=== PATIENT | female | born 1980 ===

== ENCOUNTER 2018-03-04 10:20 | Emergency (ER) | payer OTHER, SELFPAY ==
[2018-03-04 10:28] VITALS: O2SAT 98; BMI 31.7
[2018-03-04] MEDS ORDERED: Sodium Chloride 0.9% 1,000 ML IV STA (11:02)
--- NOTE | 2018-03-04 11:12 | ED PDOC ---
HPI: Abdomen Time Seen by Provider: 03/04/18 10:37 Chief Complaint (Nursing): Abdominal Pain Chief Complaint (Provider): Diarrhea History Per: Patient History/Exam Limitations: no limitations Additional History Per: Patient Additional Complaint(s): Diarrhea and vomit nonbloody. Abd pain mild upper. No new food or drinks. No travel or anyone sick. No back pain, headaches, dizziness, weakness, fever, chest pain, dyspnea. No dysuria Past Medical History Reviewed: Nursing Documentation, Vital Signs Vital Signs: Last Vital Signs Temp 98 F 03/04/18 10:27 Pulse 71 03/04/18 10:27 Resp BP 126/75 03/04/18 10:27 Pulse Ox 98 03/04/18 14:07 - Medical History PMH: No Chronic Diseases - Surgical History Surgical History: No Surg Hx - Family History Family History: States: Unknown Family Hx - Living Arrangements Living Arrangements: With Family - Social History Current smoker - smoking cessation education provided: No Alcohol: None Drugs: Denies - Home Medications Home Medications: Ambulatory Orders Medication Instructions Recorded Nitrofurantoin Macrocrystals 100 mg PO BID #14 cap 07/19/14 [Macrobid] Phenazopyridine HCl [Pyridium] 100 mg PO TID #6 tab 07/19/14 Dicyclomine [Dicyclomine HCl] 10 mg PO DAILY PRN 5 Days cap 03/04/18 Nitrofurantoin Macrocrystals 100 mg PO BID #10 cap 03/04/18 [Macrobid] Ondansetron [Zofran] 4 mg PO Q8H PRN #6 tab 03/04/18 - Allergies Allergies/Adverse Reactions: Allergies Allergy/AdvReac Type Severity Reaction Status Date / Time No Known Allergies Allergy Verified 07/19/14 19:04 Review of Systems ROS Statement: Except As Marked, All Systems Reviewed And Found Negative Gastrointestinal: Positive for: Nausea, Vomiting, Abdominal Pain, Diarrhea Physical Exam - Reviewed Nursing Documentation Reviewed: Yes Vital Signs Reviewed: Yes - Physical Exam Appears: Positive for: Non-toxic, No Acute Distress Head Exam: Positive for: ATRAUMATIC, NORMAL INSPECTION, NORMOCEPHALIC Skin: Positive for: Normal Color, Warm, DRY Eye Exam: Positive for: EOMI, Normal appearance, PERRL ENT: Positive for: Normal ENT Inspection Neck: Positive for: Normal, Painless ROM Cardiovascular/Chest: Positive for: Regular Rate, Rhythm Respiratory: Positive for: CNT, Normal Breath Sounds Gastrointestinal/Abdominal: Positive for: Soft, Tenderness (mild upper abd across; no lower quadrant tenderness on deep palpation) Back: Positive for: Normal Inspection. Negative for: L CVA Tenderness, R CVA Tenderness Extremity: Positive for: Normal ROM. Negative for: Tenderness, Pedal Edema Neurologic/Psych: Positive for: Alert, Oriented - Laboratory Results Result Diagrams: 03/04/18 11:50 03/04/18 11:50 Interpretation Of Abn Labs: urine wbc - ECG O2 Sat by Pulse Oximetry: 98 Pulse Ox Interpretation: Normal - Progress ED Course And Treament: 1422: Feels better. AAOx3. No pain. Tolerates po. Pt. now states has same issues and is in ER. Disposition - Clinical Impression Clinical Impression: Nausea & vomiting, Diarrhea, UTI (urinary tract infection) - Patient ED Disposition Is Patient to be Admitted: No Counseled Patient/Family Regarding: Studies Performed, Diagnosis, Need For Followup, Rx Given - Disposition Referrals: [facility] [Outside] - 03/05/18 Disposition: Routine/Home Disposition Time: 14:05 Condition: STABLE Additional Instructions: Return if not better in 3 days. Prescriptions: Dicyclomine [Dicyclomine HCl] 10 mg PO DAILY PRN 5 Days cap PRN Reason: Diarrhea Nitrofurantoin Macrocrystals [Macrobid] 100 mg PO BID #10 cap Ondansetron [Zofran] 4 mg PO Q8H PRN #6 tab PRN Reason: Nausea/Vomiting Instructions: Urinary Tract Infections in Adults, Nausea and Vomiting, Adult, Diarrhea in Adolescents and Adults Forms: [facility] (Swedish)
[2018-03-04 12:04] LABS: BASO % 0.4 % (0.0-2.0); EOS # 0.1 K/uL (0.0-0.7); EOS % 2.7 % (0.0-4.0); HEMOGLOBIN 13.3 g/dL (12.0-16.0); LYMPH # 1.4 K/uL (1.0-4.3); LYMPH % 30.5 % (20.0-40.0); MEAN CELL VOLUME 87.7 fl (81.0-99.0); MEAN CORPUSCULAR HEMOGLOBIN 29.7 pg (27.0-31.0); MEAN CORPUSCULAR HGB CONC 33.9 g/dL (33.0-37.0); MEAN PLATELET VOLUME 8.4 fl (7.2-11.7); MONO # 0.5 K/uL (0.0-0.8); NEUT # 2.6 K/uL (1.8-7.0); NEUT % 56.4 % (50.0-75.0); NRBC % 0.2 % (0.0-0.0); RBC 4.48 Mil/uL (3.80-5.20); RED CELL DISTRIBUTION WIDTH 13.4 % (11.5-14.5); WHITE BLOOD COUNT 4.5 K/uL (4.8-10.8)
[2018-03-04 12:13] LABS: ALB/GLOB RATIO 1.3 (1.0-2.1); ALBUMIN 4.5 g/dL (3.5-5.0); ALT/SGPT 45 U/L (9-52); AST/SGOT 32 U/L (14-36); BLOOD UREA NITROGEN 8 mg/dl (7-17); CALCIUM 9.3 mg/dL (8.4-10.2); GFR AFRICAN-AMERICAN > 60; GFR NON-AFRICAN AMERICAN > 60; LIPASE 116 U/L (23-300)
[2018-03-04 12:21] LABS: SQUAMOUS EPITHIAL 4 /hpf (0-5); URINE BACTERIA RARE (<OCC); URINE BILIRUBIN NEGATIVE (NEGATIVE); URINE BLOOD SMALL (NEGATIVE); URINE CLARITY SLIGHTY-CLOUDY (Clear); URINE COLOR YELLOW (YELLOW); URINE GLUCOSE (UA) NEG (Normal); URINE LEUKOCYTE ESTERASE LARGE Leu/uL (Negative); URINE PROTEIN NEGATIVE (NEGATIVE); URINE UROBILINOGEN 0.2-1.0 mg/dL (0.2-1.0)
[2018-03-04 14:52] VITALS: BP 126/79; PULSE 81; RESP 16; TEMP 97.9
== END 2018-03-04 14:54 | disposition short-term general hospital (02) ==
LOC: H.ER 10:20
DX: N39.0 Urinary tract infection, site not specified (principal)
CPT/HCPCS: 80053; 81003; 81025; 83690; 85025; 87086; 99284; J7040

== ENCOUNTER 2018-04-07 01:47 | Emergency (ER) | payer SELFPAY ==
[2018-04-07 01:47] VITALS: BMI 31.7
[2018-04-07 01:56] VITALS: O2SAT 99
[2018-04-07] MEDS ORDERED: Tmp-Smz 800 mg-160 mg DS Tab PO STA (02:09)
--- NOTE | 2018-04-07 02:26 | ED PDOC ---
HPI: Female Pain Time Seen by Provider: 04/07/18 01:59 Chief Complaint (Nursing): Female Genitourinary Chief Complaint (Provider): Female Genitourinary History Per: Patient History/Exam Limitations: no limitations Onset/Duration Of Symptoms: Worse Since (1899) Current Symptoms Are (Timing): Still Present Additional Complaint(s): 37 y/o female with no significant pmhx, who presents to the ED for evaluation of hematuria and dysuria since 1899. Patient reports multiple episodes of hematuria, dysuria, urinary urgency, and urinary frequency since 7pm. Patient denies any associated back pain, fever, chills, nausea, or vomiting. PMD: Clinic Past Medical History Reviewed: Historical Data, Nursing Documentation, Vital Signs Vital Signs: Last Vital Signs Temp 98.9 F 04/07/18 01:53 Pulse 80 04/07/18 01:53 Resp 16 04/07/18 01:53 BP 142/56 L 04/07/18 01:53 Pulse Ox 99 04/07/18 01:53 - Medical History PMH: No Chronic Diseases - Surgical History Surgical History: No Surg Hx - Family History Family History: States: Unknown Family Hx - Social History Current smoker - smoking cessation education provided: No Alcohol: None Drugs: Denies - Home Medications Home Medications: Ambulatory Orders Medication Instructions Recorded Nitrofurantoin Macrocrystals 100 mg PO BID #14 cap 07/19/14 [Macrobid] Phenazopyridine HCl [Pyridium] 100 mg PO TID #6 tab 07/19/14 Dicyclomine [Dicyclomine HCl] 10 mg PO DAILY PRN 5 Days cap 03/04/18 Nitrofurantoin Macrocrystals 100 mg PO BID #10 cap 03/04/18 [Macrobid] Ondansetron [Zofran] 4 mg PO Q8H PRN #6 tab 03/04/18 Phenazopyridine HCl [Pyridium] 100 mg PO TID #6 tab 04/07/18 Sulfamethoxazole/Trimethoprim 1 tab PO BID #14 tab 04/07/18 [Bactrim DS 800 mg-160 mg] - Allergies Allergies/Adverse Reactions: Allergies Allergy/AdvReac Type Severity Reaction Status Date / Time No Known Allergies Allergy Verified 04/07/18 01:52 Review of Systems ROS Statement: Except As Marked, All Systems Reviewed And Found Negative Constitutional: Negative for: Fever, Chills Gastrointestinal: Negative for: Nausea, Vomiting, Diarrhea Genitourinary Female: Positive for: Dysuria, Frequency, Hematuria, Other ( urgency) Musculoskeletal: Negative for: Back Pain Physical Exam - Reviewed Nursing Documentation Reviewed: Yes Vital Signs Reviewed: Yes - Physical Exam Appears: Positive for: Non-toxic, No Acute Distress Head Exam: Positive for: ATRAUMATIC, NORMAL INSPECTION, NORMOCEPHALIC Skin: Positive for: Normal Color, Warm, Dry. Negative for: Rash Eye Exam: Positive for: EOMI, Normal appearance, PERRL Neck: Positive for: Normal, Painless ROM, Supple Cardiovascular/Chest: Positive for: Regular Rate, Rhythm. Negative for: Murmur Respiratory: Positive for: Normal Breath Sounds. Negative for: Respiratory Distress Gastrointestinal/Abdominal: Positive for: Tenderness (superpubic) Back: Positive for: Normal Inspection. Negative for: L CVA Tenderness, R CVA Tenderness, Vertebral Tenderness Extremity: Positive for: Normal ROM. Negative for: Pedal Edema, Deformity Neurologic/Psych: Positive for: Alert, Oriented (x3). Negative for: Motor/ Sensory Deficits - ECG O2 Sat by Pulse Oximetry: 99 (RA) Pulse Ox Interpretation: Normal Medical Decision Making Medical Decision Makin:33 Initial Impression: 37 y/o female with acute cystitis/UTI Plan --Urine --ED urine dipstick --Bactrim DS --Pyridium 200mg PO --Urine culture --Urinalysis --Reevaluation 02:50 Urine dip is indicative of UTI. Patient is stable and no longer requires treatment in the ED at this time. Patient will be discharged home with Rx for Pyridium and Bactrim. Return precautions provided. Scribe Attestation: Documented by Arthur Leblanc, acting as a scribe for Sesar Iraheta MD. Provider Scribe Attestation: All medical record entries made by the Scribe were at my direction and personally dictated by me. I have reviewed the chart and agree that the record accurately reflects my personal performance of the history, physical exam, medical decision making, and the department course for this patient. I have also personally directed, reviewed, and agree with the discharge instructions and disposition. Disposition - Clinical Impression Clinical Impression: UTI (urinary tract infection) - Patient ED Disposition Is Patient to be Admitted: No Counseled Patient/Family Regarding: Studies Performed, Diagnosis, Need For Followup, Rx Given - Disposition Disposition: Routine/Home Disposition Time: 02:50 Condition: STABLE Prescriptions: Phenazopyridine HCl [Pyridium] 100 mg PO TID #6 tab Sulfamethoxazole/Trimethoprim [Bactrim DS 800 mg-160 mg] 1 tab PO BID #14 tab Instructions: Urinary Tract Infections in Adults Forms: [facility] ([place]er) Print Language: MONGOLIAN
[2018-04-07 03:11] VITALS: BP 134/76; PULSE 74; RESP 18; TEMP 98.7
[2018-04-07 03:24] LABS: SQUAMOUS EPITHIAL < 1 /hpf (0-5); URINE BACTERIA OCC (<OCC); URINE BILIRUBIN NEGATIVE (NEGATIVE); URINE BLOOD LARGE (NEGATIVE); URINE CLARITY CLOUDY (Clear); URINE COLOR YELLOW (YELLOW); URINE GLUCOSE (UA) NEG (Normal); URINE HYALINE CAST 0-2 /hpf (0-2); URINE LEUKOCYTE ESTERASE LARGE Leu/uL (Negative); URINE PROTEIN 100 mg/dL (NEGATIVE); URINE UROBILINOGEN 0.2-1.0 mg/dL (0.2-1.0)
== END 2018-04-07 03:11 | disposition home or self-care (01) ==
LOC: H.ER 01:47
DX: N30.01 Acute cystitis with hematuria (principal)